=== PATIENT | male | born 2000 | race Caucasian/White ===

== ENCOUNTER 2022-04-09 21:37 | Emergency (ER) | payer BC, SELFPAY ==
[2022-04-09 21:38] VITALS: BP 175/117; PULSE 84; RESP 18; TEMP 35.9; O2SAT 97; BMI 25.1
[2022-04-09 21:45] VITALS: PULSE 61; RESP 18; O2SAT 100
--- NOTE | 2022-04-09 22:35 | EKG12_ITS ---
Test Reason : PALPS Blood Pressure : / mmHG Vent. Rate : 063 BPM Atrial Rate : 068 BPM P-R Int : 116 ms QRS Dur : 090 ms QT Int : 362 ms P-R-T Axes : 036 036 062 degrees QTc Int : 370 ms Normal sinus rhythm Normal ECG Confirmed by IRENA MARY, JEANNINE ([id number]), news videotape editor JUAN SOLORZANO ([id number]) on 04/10/2022 8:41:18 AM Referred By: CAIO Confirmed By:JEANNINE OSBORN MD
--- NOTE | 2022-04-09 22:35 | EX.ED.DYSGE1 ---
HPI History of Present Illness Chief Complaint: Palpitations Informant: patient Narrative Narrative: No recurrent palpitations this evening while resting. Has apple watch states heart rate in the 140s with lightheaded symptoms. Lasts about 20 seconds. had similar episode. Heart rate went up to 120s at that time had some chills. COVID test 2 days ago that was negative. No symptoms since then of chills. Follow he has been registered he noted his heart rate went up to 108 with palpitations. Thinks grandmother had atrial fibrillation history. No past medical history. He drinks caffeine 4 days a week however none recently. Denies recreational drug use. Denies energy drinks. No history of similar prior to . Denies recent vomiting or diarrhea. Prior similar symptoms: No PFSH PFSH Medical History no medical history Home Medications No Known/Unobtainable [No Known Home Medications] 05/21/16 [History Last Taken Unknown] Allergy/AdvReac Type Severity Reaction Status Date / Time No Known Allergies Allergy Verified 04/09/22 21:38 Surgical History no surgical history Social History Smoking Status: Never smoker ROS ROS ED Constitutional Constitutional ED: Denies chills, fever(s) or sweats Eyes Eyes: Denies change in vision ENT ENT ED: Denies dysphagia or sore throat Cardiovascular Cardiovascular: Reports palpitations and racing heartbeat; Denies chest pain or leg edema Respiratory/Chest Respiratory/Chest: Denies cough, dyspnea or dyspnea on exertion Gastrointestinal Gastrointestinal: Denies abdominal pain, diarrhea, nausea or vomiting Genitourinary Genitourinary ED: Denies dysuria, hematuria or urinary frequency Musculoskeletal Musculoskeletal: Denies back pain, extremity pain or neck pain Integumentary Denies rash or wounds Neurologic Neurologic: Denies headache(s), paresthesias or weakness EXAM Physical Exam Const Vital Signs: 04/09/22 21:38 04/09/22 21:45 04/09/22 21:45 Temperature 96.6 F L Temperature Source Temporal Pulse Rate 84 61 Respiratory Rate 18 18 Respiratory Effort Normal Blood Pressure 175/117 H Blood Pressure Mean 136 Pulse Ox 97 100 Oxygen Delivery Method Room Air Room Air 04/10/22 00:00 Temperature Temperature Source Pulse Rate 65 Respiratory Rate 15 Respiratory Effort Blood Pressure Blood Pressure Mean Pulse Ox 99 Oxygen Delivery Method Positive well nourished and well developed General Appearance ED: well developed and NAD HEENT Reports moist mucous membranes normocephalic and atraumatic Eyes PERRL, EOMs intact bilaterally and conjunctivae normal General Eye ED: Yes normal appearance of both eyes Neck no lymphadenopathy and supple General: Negative for tenderness Chest Wall Chest: Negative for tenderness Resp normal respiratory effort and normal air movement Effort and Inspection: symmetric chest movement; Negative for respiratory distress Cardio regular rate, regular rhythm and no murmurs Peripheral Pulses: pulses 2+ throughout GI normal to inspection, nondistended, normoactive bowel sounds and non-tender Palpation: Negative for guarding or rebound tenderness present Back/Spine no CVA tenderness and no thoracic nor lumbar tenderness Extremity normal to inspection General Extremety ED: Negative for edema or tenderness General Extremity: Negative for edema Neuro oriented x3 and no sensory deficits noted Sensorium / Orientation: awake and alert Skin no rashes or lesions noted and no wounds MDM MDM MDM Narrative Medical decision making narrative: Presents with recurrent palpitations. EKG normal labs normal. Discussed decreasing caffeine intake. Monitoring symptoms. He is ordered for 40-hour Holter monitor to return tomorrow as an outpatient to obtain for further evaluation. Return precautions discussed. All questions were answered. Lab Data Attestation: I reviewed the patient's lab results. Labs: Laboratory Results - last 24 hr 04/09/22 04/09/22 22:46 22:46 WBC 6.2 RBC 5.45 Hgb 17.0 H Hct 47.5 MCV 87.2 MCH 31.2 MCHC 35.8 RDW Std Deviation 37.3 RDW Coeff of Kirsten 11.9 Plt Count 193 MPV 9.8 Immature Gran % (Auto) 0.300 Neut % (Auto) 62.9 Lymph % (Auto) 25.0 Frontier % (Auto) 8.7 Eos % (Auto) 2.6 Baso % (Auto) 0.5 Absolute Neuts (auto) 3.9 Absolute Lymphs (auto) 1.55 Nucleated RBC % 0 Sodium 139 Potassium 3.7 Chloride 107 Carbon Dioxide 25.0 Anion Gap 7 BUN 27 H Creatinine 0.87 Estim Creat Clear Calc 138.68 Est GFR (MDRD) Af Amer 141 Est GFR (MDRD) Non-Af 117 BUN/Creatinine Ratio 30.9 H Glucose 108 H Calcium 9.2 TSH 1.54 EKG Initial EKG: Attestation: I personally reviewed and interpreted this EKG as follows: Comments: Sinus rate of 63, no ST or T wave changes QTC 370. Discharge Plan Triage Chief Complaint: Palpitations Other Complaint: Shortness of Breath ED Provider: Mickey Coleman Dx/Rx/DC Orders Clinical Impression: Palpitation Instructions: ED Palpitations Prescriptions: No Action No Known Home Medications Primary Care Provider: Bairon Major Referrals: Bairon Major MD [Primary Care Provider] - 1 Week Activity Restrictions/Additional Instructions: EKG and labs normal. Flu negative. Return for Holter monitor placement tomorrow as an outpatient. Return if any worsening symptoms. Disposition Disposition: Home, Self Care Discharge Date/Time: 04/10/22 00:02
[2022-04-09 22:52] LABS: Absolute Lymphocyte Count 1.55 X10^3/uL (0.83-4.51); Absolute Neutrophil Count 3.9 X10^3/uL (2.0-7.7); Basophil# 0.03 X10^3/uL; Basophil% 0.5 % (0-1); Eosinophil# 0.16 X10^3/uL; Eosinophils% 2.6 % (0-5); Hematocrit 47.5 % (40-54); Lymphocyte # 1.55 X10^3/ul (0.83-4.51); Mean Corp Hgb Conc 35.8 g/dL (32-36); Mean Corpuscular Hgb 31.2 pg (27.0-32.0); Mean Corpuscular Volume 87.2 fL (80-94); Mean Platelet Vol. 9.8 fl (6.2-12.0); Monocyte# 0.54 X10^3/uL; Monocyte% 8.7 % (0-10); NRBC Flagged by Analyzer 0 % (0-5); Neutrophil # 3.89 X10^3/uL (2.7-7.7); Neutrophil % 62.9 % (47-70); Platelet Count 193 K/mm3 (150-450); RBC Distribution Width CV 11.9 % (11.6-14.6); RBC Distribution Width SD 37.3 fl (35.1-43.9); Red Blood Count 5.45 M/mm3 (4.6-6.2); White Blood Count 6.2 K/mm3 (4.4-11.0)
[2022-04-09 23:19] LABS: Anion Gap 7 (5-15); BUN 27 mg/dL (7-18); BUN/Creat Ratio 30.9 RATIO (10-20); Calcium,Total 9.2 mg/dL (8.5-10.1); Chloride 107 mmol/L (98-107); Creatinine, Serum 0.87 mg/dL (0.70-1.30); EST Glomerular Filtration Rate 117 mL/min (>60); Est Glom Filt Rate - Afr Amer 141 mL/min (>60); Estimated Creatinine Clearance 138.68 ml/min; Glucose 108 mg/dL (74-106); Potassium 3.7 mmol/L (3.5-5.1); Sodium Level 139 mmol/L (136-145); Thyroid Stim Hormone (TSH) 1.54 uIU/mL (0.358-3.74)
[2022-04-10] VITALS: PULSE 65; RESP 15; O2SAT 99
== END 2022-04-10 00:02 | disposition home or self-care (01) ==
PROVIDERS: Emergency Provider Emergency Medicine; PCP Pediatrics; Visit Provider Emergency Medicine
DX: R00.2 Palpitations (principal)
CPT/HCPCS: 80048; 84443; 85025; 87804; 93005; 99284

== ENCOUNTER → 2022-04-10 | Outpatient (CLI) | payer BC, SELFPAY | END | disposition home or self-care (01) | LOC: CVS 09:30 | PROVIDERS: PCP Pediatrics; Referring Provider Emergency Medicine; Visit Provider Emergency Medicine | DX: R00.2 Palpitations (principal) | CPT/HCPCS: 93225; 93226 ==

== ENCOUNTER 2024-12-14 22:50 | Emergency (ER) | payer OTHER, SELFPAY ==
[2024-12-14 22:51] VITALS: BP 132/93; PULSE 61; RESP 18; TEMP 37; O2SAT 97; BMI 26.6
[2024-12-14 22:54] VITALS: BP 132/93; PULSE 61; RESP 18; TEMP 37; O2SAT 97
--- NOTE | 2024-12-14 23:14 | ED.VIS.LOWEX ---
HPI History of Present Illness Chief Complaint: Wound Check Informant: patient Narrative Narrative: 24-year-old healthy male playing sand volleyball 4 days ago along with some coworkers, a lot of them got blisters on the bottom of the feet from that and this patient did as well. Biggest one is on the bottom of his heel. He states it was sore to walk on so he used a sterile needle and after cleaning the skin drain the water out of it in [address]. Over the last day or so immediately started having some redness and started going a little bit proximally within the medial aspect of the foot, she is concerned about infection. He denies any fevers, chills, systemic symptoms. There has been no drainage recently even though he did poke a hole in it a couple days ago again. PFSH PFSH Medical History no medical history no medical history Home Medications ?Medication ?Instructions ?Recorded ?Last Taken ?Type cephalexin 500 mg capsule 500 mg PO Q6 #28 CAPSULES 12/14/24 Unknown Rx Allergy/AdvReac Type Severity Reaction Status Date / Time No Known Allergies Allergy Verified 12/14/24 22:51 Family History no significant family his Surgical History no surgical history Social History Smoking Status: Never smoker ROS ROS ED Constitutional Constitutional ED: Denies chills or fever(s) Musculoskeletal Musculoskeletal: Reports extremity pain; Denies neck pain Integumentary Reports rash and wounds; Denies Abrasions Neurologic Neurologic: Denies paresthesias or weakness EXAM Physical Exam Const Vital Signs: 12/14/24 22:51 12/14/24 22:54 Temperature 98.6 F 98.6 F Temperature Source Oral Oral Pulse Rate 61 61 Respiratory Rate 18 18 Blood Pressure 132/93 H 132/93 H Blood Pressure Mean 106 106 Pulse Ox 97 97 Oxygen Delivery Method Room Air Room Air Positive well nourished and well developed General Appearance ED: well developed and NAD HEENT normocephalic and atraumatic Neck full ROM and supple Resp normal respiratory effort Back/Spine normal ROM and normal to inspection Extremity Extremity Narrative: Large unroofed blister on the left heel, nontender except for 1 small little extension of it distally and medial, mildly tender there is some erythema there around it, and a slight amount of streaking up to the medial aspect of the foot/heel. With regards to the streaking it progresses maybe 3 cm and is nontender. There is no fluctuance or abscess or discharge from the blister, and the blister is not fluctuant or seemingly full of any fluid. Neuro oriented x3, no focal motor deficits and no sensory deficits noted Sensorium / Orientation: alert Psych mental status grossly normal and thought process normal Skin Skin Narrative: Wound on the left heel with a slight amount erythema streaking up to the medial aspect of the foot see above MDM MDM MDM Narrative Medical decision making narrative: I do not think there is anything to drain here right now. There is only a slight amount of erythema of the part of this, so I think reasonable to put him on cephalexin. I do not think we need to be concerned about anaerobes right now, since it was a closed blister when he was done with the causative volleyball game, and it probably became secondarily infected so strep and staph would be the main thing to cover here am not concerned about MRSA at this time given its appearance and lack of significant/severe tenderness. Discharge Plan Triage Chief Complaint: Wound Check ED Provider: Jose Alberto Iverson Dx/Rx/DC Orders Clinical Impression: Infected blister of left foot Instructions: ED Blister (Adult), ED Wound Check (Infection) Prescriptions: New cephalexin 500 mg capsule 500 mg PO Q6 Qty: 28 0RF Primary Care Provider: Care Physician,No Primary Referrals: Guy Townsend DPM [Med Staff - Active Staff] - 1 Week if not improving Print Language: Indonesian Disposition Disposition: Home, Self Care
[2024-12-14 23:32] VITALS: BP 132/93; PULSE 61; RESP 18; TEMP 37; O2SAT 97
--- OUTSIDE RECORDS SUMMARY | 2024-12-14 23:37 | XMS RPT_ITS | CCD ---
Author Organization [facility] Inform ion Partnership AUTOMATION CLERK [facility] Care Team Providers Care Jira Administrator Name Role Phone None, Physician Primary Care Provider [phone] DO Kyler Chun Emergency Provider [phone] Yoseph Scott MD Primary Care Provider Kyler Chun Attending Unavailable Isra Primary Care Unavailable Mickey Coleman Attending Unavailable Mickey Coleman Referring Unavailable Yoseph Scott Primary Care Unavailable Mickey Coleman Attending Unavailable Yoseph Scott Primary Care Unavailable YOSEPH SCOTT Attending Unavailable YOSEPH SCOTT Primary Care Unavailable Bart DPM, Edi Leon Attending Unavailab le Bart DPM, Edi Leon Attending Unavailab le Bart DPM, Edi Leon Attending Unavailab le Bart DPM, Edi Leon Attending Unavailab le Mukund DOAra Attending Unava ilable Bart DPM, Edi Leon Attending Unavailab le Bart DPM, Edi Leon Attending Unavailab le Bart DPM, Edi Leon Attending Unavailab le Bart DPM, Edi Leon Attending Unavailab le Bart DPM, Edi Leon Attending Unavailab le Bart DPM, Edi Leon Attending Unavailab le Bart DPM, Edi Leon Attending Unavailab le Bart DPM, Edi Leon Attending Unavailab le JESSICA YUMIKO SIMON Attending Unavailabl e Allergies Allergy Classification Reported Allergen(s) Allergy Type Date of Onset Reaction(s) Facility (1 source) No Known Medication Allergies; Translations: [No Known Medication Allergies] Propensity to adverse reactions to drug (disorder) [facility] Repository Medications Completed/Discontinued Medications Medication Drug Class(es) Dates Sig (Normalized) Sig (Original) amino ac/whey prot conc, isol (WHEY PROTEIN ORAL) (2 sources) amino ac/whey pr ot conc, isol (WHEY PROTEIN ORAL) Take by mouth. 3-5 times per week after workouts 0 Active Comment on above: Take by mouth. 3-5 t imes per week after workouts Multivitamin capsule (2 sources) take 1 capsule by mouth once daily Multivitamin capsule Take 1 capsule by mouth once daily. With fish oil 0 Active Comment on above: Take 1 capsule by mo uth once daily. With fish oil Problems Problem Classification Problem Date Documented Da te Episodic/Chronic Cardiac dysrhythmias (4 sources) Palpitations; Translations: [Palpitations] Onset: 05-10-2022 Episodic Disorders of teeth and jaw (1 source) Unspecified cyst of jaw; Translations: [Unspecified cyst of jaw] Onset: 11-11-2024 Episodic Immunizations and screening for infectious disease (1 source) Patient encounter status; Translations: [Encounter for immunization] Episodic Residual codes; unclassified (3 sources) FH: Congenital heart disease; Translations: [Family history of other congenital malformations, deformations and chromosomal abnormalities] Onset: 05-30-2019 05-30-2019 Episodic Results Test Name Value Interpretation Reference Range Facility Podiatry Office/Clinic Noteo n 01-06-2024 Podiatry Office/Clinic Note Chief Complaint f/u right medial mal fx History of Present Illness Patient is a pleasant 23-year-old male who presents for follow-up of nondisplaced right medial malleolus fracture. He is being treated nonoperatively. He has been weightbearing as tolerated normal shoe gear, he has returned to full activity. He is not having any pain. He is not having any issues. Denies calf pain. No complaints. Here for updated x-rays of the right ankle. Initially sustained injury on June 18, 2023. He is about 6 months status post injury. Has been using Tubigrip's for swelling. Relates the swelling has almost completely resolved Has virtually no pain he relates. Review of Systems Constitutional Head Nose Mouth Throat Cardio/Respiratory Hematologic Chills: No Headache: No Shortness of Breath: No History of DVT: No Fever: No Sore Throat: No Chest Pain: No History of Claudication: No Ear Pain: No Palpitation: No History of Aneurysm: No History of Gangrene: No Genitourinary Musculoskeletal Psychiatric Vascular Burning: No Muscle Weakness: No Anxiety: No Blood Disorder: No Pain: No Joint Pain: No Depression: No Numbness: No Gastrointestinal Dermatology Rheumatologic Problems: No Rash: No History of Rheumatic Arthritis: No Pain: No Pruritus: No History of Gout: No History of Lupus: No Physical Exam Vitals & Measurements HR: 73 (Peripheral) BP: 150/79 Orthopedic: Bony foot structure appears grossly normal. Patient able to wiggle toes. 5 out of 5 muscle strength all inverters everters dorsiflexors and plantar flexors. No pain on right ankle joint range of motion. No pain to palpation right medial malleolus. Patient able to perform single-leg hop test for greater than 30 seconds on the right. Compartments are soft and compressible no pain out of portion noted bilateral. No pain to palpation bilateral calves. Vascular: Pulses palpable 2/4 Dorsalis Pedis and Posterior Tibial Arteries Bilateral. Capillary fill time brisk, approximately 3 seconds bilateral toes when leg elevated. Nonpitting edema noted right ankle. Skin temp warm to warm proximal to distal bilateral. Neurological: Gross and epicritic sensation intact bilateral. Protective sensation intact as measured with Interv[place] Lizeth monofilament. Gross motor intact bilateral. Negative tinels/valliex upon neural light percussion. Dermatologic: Splint clean dry and intact right lower extremity. Negative for overt rashes or irregular pigmented lesions. Skin turgor within normal limits Additional Vitals No qualifying data available. Assessment/Plan 1. Closed nondisp fracture of right medial malleolus with routine healing Discussed risk of nonunion/malunion/possi ble need for surgical intervention. Patient relates understanding. -Evaluation and Management extensively on treatment regimen with time spent with patient dedicated to discussion of pathogenesis and treatment options for patient's problems including bracing, protection, and avoiding the need for operative intervention as well as the possibility of surgical intervention such as Open reduction and internal fixation. 3 views right ankle obtained, reviewed, and interpreted. No change in alignment of fracture. Continued osseous trabeculation noted/bone callus formation. Discussed with patient He he may continue weightbearing as tolerated normal shoe gear. Encouraged use of ASO ankle brace with strenuous activity. All questions and concerns answered. Patient and mother are amenable to plan. *Return to clinic 6 months for new weightbearing radiographs right ankle. Fracture check next visit will be 12-month post fracture check Medical Decision Making Given all the above, there is low risk of M/M associated with today's encounter and treatment plan. Chronic conditions NOT treated during this visit that affected my overall medical decision making: [] Treatment plans discussed but not opted for at this time: [] Prescribed medication that requires intensive monitoring for toxicity: [] I have reviewed the patient?s medication list for medication interactions/contraindi cations and/or for upcoming procedures: [yes Time Spent with the Patient I have personally spent [31] minutes on this date, directly related to today's patient visit, including pre and post visit work, for this date of service. Time listed does not include time spent on separately billable services. Problem List/Past Medical History Ongoing No qualifying data Historical No qualifying data Medications DME, See Instructions Allergies No Known Medication Allergies Social History Alcohol Never Substance Abuse Denies All Tobacco Never (less than 100 in lifetime) Use:. Diagnostic Results (01/06/2024 15:11 EDT XR Ankle 3 Views Right) * Final Report * Reason For Exam right ankle wb 3v Report 3 views right ankle demonstrate: Osseous trabeculation noted almost entirely acros (more content not included)... Normal [facility] XR Ankle 3 Views Righton XR Ankle 3 Views Right 3 views right ankle demonstrate: Osseous trabeculation noted almost entirely across the prior radiolucency at the medial malleolus noted with no change in alignment of the known fracture. There is continued osseous trabeculation noted across the fracture site at the central aspect and lateral aspect. No other acute fracture dislocations noted. No increase in medial clear space. No increase in tib-fib clear space. No radiolucencies of the talar dome noted. Ankle mortise is well aligned and maintained otherwise. No foreign bodies noted. No increase in soft tissue volume, density, or edema noted. No soft tissue calcifications noted. No subchondral sclerosis noted. No change in alignment of fracture with noted continued osseous trabeculation compared to prior study on August 29, 2023 Final Signed by: Edi Arriaga DPM Signed (Electronic Signature): 01/06/2024 3:32 pm Transcribed DT/TM: 01/06/2024 3:32 (If Report Is Signed, Electronically Signed in Other Vendor System) Normal [facility] Podiatry Office/Clinic Noteo n 08-29-2023 Podiatry Office/Clinic Note Chief Complaint Follow-up right medial malleolus fracture History of Present Illness Patient is a pleasant 22-year-old male who presents for follow-up of nondisplaced right medial malleolus fracture. He is being treated nonoperatively. He has been weightbearing as tolerated normal shoe gear, he is starting to return to activity, he has been golfing. He is not having any pain. He is not having any issues. Denies calf pain. No complaints. Here for updated x-rays of the right ankle. Initially sustained injury on June 18, 2023. He is about 12 weeks status post injury. Has been using Tubigrip's for swelling. Relates the swelling continues to improve. Has virtually no pain he relates. Review of Systems Constitutional Head Nose Mouth Throat Cardio/Respiratory Hematologic Chills: No Headache: No Shortness of Breath: No History of DVT: No Fever: No Sore Throat: No Chest Pain: No History of Claudication: No Ear Pain: No Palpitation: No History of Aneurysm: No History of Gangrene: No Genitourinary Musculoskeletal Psychiatric Vascular Burning: No Muscle Weakness: No Anxiety: No Blood Disorder: No Pain: No Joint Pain: No Depression: No Numbness: No Gastrointestinal Dermatology Rheumatologic Problems: No Rash: No History of Rheumatic Arthritis: No Pain: No Pruritus: No History of Gout: No History of Lupus: No Physical Exam Vitals & Measurements HR: 86 (Peripheral) BP: 147/81 Orthopedic: Bony foot structure appears grossly normal. Patient able to wiggle toes. 5 out of 5 muscle strength all inverters everters dorsiflexors and plantar flexors. No pain on right ankle joint range of motion. No pain to palpation right medial malleolus. Patient able to perform single-leg hop test for greater than 30 seconds on the right. Compartments are soft and compressible no pain out of portion noted bilateral. No pain to palpation bilateral calves. Vascular: Pulses palpable 2/4 Dorsalis Pedis and Posterior Tibial Arteries Bilateral. Capillary fill time brisk, approximately 3 seconds bilateral toes when leg elevated. Nonpitting edema noted right ankle. Skin temp warm to warm proximal to distal bilateral. Neurological: Gross and epicritic sensation intact bilateral. Protective sensation intact as measured with Intervale Lizeth monofilament. Gross motor intact bilateral. Negative tinels/valliex upon neural light percussion. Dermatologic: Splint clean dry and intact right lower extremity. Negative for overt rashes or irregular pigmented lesions. Skin turgor within normal limits Additional Vitals No qualifying data available. Assessment/Plan 1. Closed nondisp fracture of right medial malleolus with routine healing Discussed risk of nonunion/malunion/possi ble need for surgical intervention. Patient relates understanding. -Evaluation and Management extensively on treatment regimen with time spent with patient dedicated to discussion of pathogenesis and treatment options for patient's problems including bracing, protection, and avoiding the need for operative intervention as well as the possibility of surgical intervention such as Open reduction and internal fixation. 3 views right ankle obtained, reviewed, and interpreted. No change in alignment of fracture. Continued osseous trabeculation noted/bone callus formation. Discussed with patient He he may continue weightbearing as tolerated normal shoe gear. Encouraged use of ASO ankle brace with strenuous activity. All questions and concerns answered. Patient and mother are amenable to plan. *Return to clinic 3 months for new weightbearing radiographs right ankle. Fracture check next visit will be 6-month post fracture check Medical Decision Making Given all the above, there is low risk of M/M associated with today's encounter and treatment plan. Chronic conditions NOT treated during this visit that affected my overall medical decision making: [] Treatment plans discussed but not opted for at this time: [] Prescribed medication that requires intensive monitoring for toxicity: [] I have reviewed the patient?s medication list for medication interactions/contraindi cations and/or for upcoming procedures: [yes Time Spent with the Patient I have personally spent [30] minutes on this date, directly related to today's patient visit, including pre and post visit work, for this date of service. Time listed does not include time spent on separately billable services. Problem List/Past Medical History Ongoing No qualifying data Historical No qualifying data Medications DME, See Instructions Allergies No Known Medication Allergies Social History Alcohol Never Substance Abuse Denies All Tobacco Never (less than 100 in lifetime) Use:. Diagnostic Results XR Ankle 3 Views Right 08/29/23 14:35:04 3 views right ankle demonstrate: Redemonstration of the radiolucency at the medial malleolus noted with no change in a (more content not included)... Normal [facility] XR Ankle 3 Views Righton XR Ankle 3 Views Right 3 views right ankle demonstrate: Redemonstration of the radiolucency at the medial malleolus noted with no change in alignment of the known fracture. There is osseous trabeculation noted across the fracture site at the central aspect and lateral aspect. No other acute fracture dislocations noted. No increase in medial clear space. No increase in tib-fib clear space. No radiolucencies of the talar dome noted. Ankle mortise is well aligned and maintained otherwise. No foreign bodies noted. No increase in soft tissue volume, density, or edema noted. No soft tissue calcifications noted. No change in alignment of fracture with noted continued osseous trabeculation compared to prior study on August 02, 2023 Final Signed by: Edi Arriaga DPM Signed (Electronic Signature): 08/29/2023 4:38 pm Transcribed DT/TM: 08/29/2023 4:38 (If Report Is Signed, Electronically Signed in Other Vendor System) Normal [facility] ED Clinical Summaryon 2023 ED Clinical Summary (Inserted Image. Jenelle ble to display) [place] [id number] ED Clinical Summary Person Information Name: Denia Pederson [facility] Age: 22 Years : 2000 Sex: Male PCP: Marital Status: Single Phone: Race: White Ethnicity: Not or Language: [place] Verdean Visit Reason: Hand pain-swelling; hand injury Acuity: 4 Enc Type: Emergency Med Service: Emergency Medicine Arrival: 08/12/2023 21:37:00 Discharge: 08/12/2023 22:43:00 LOS: 000 01:06 Checkin: 08/12/2023 21:37:00 Checkout: 08/12/2023 22:43:00 Dispo Type: Home or Self Care Address: [facility] [address] [phone] Provider Notes: History of Present Illness Patient presents to the ED with complaints of pain along the L dorsal hand at the lateral aspect.? He notes one hour SCRIPT COORDINATOR he was playing golf and notes the club slid in his hand and struck it.? He states the club was not swung into his hand.? He denies having weakness or numbness.? He took Naproxen SCRIPT COORDINATOR. Review of Systems GENERAL: Negative for fever RESPIRATORY: Negative for cough GI: Negative for vomiting and diarrhea SKIN: Negative for rash NEURO: Negative for acute changes Physical Exam CONSTITUTIONAL: Patient is awake and alert HEAD: Normocephalic, atraumatic HEENT: Moist mucus membranes, oropharynx clear EYES: Pupils are equally round and reactive to light, lids and lashes normal, clear conjunctiva, non-icteric sclera.? No drainage NECK: Trachea midline, external neck normal, supple, no nuchal rigidity or meningismus PULMONARY: Clear to auscultation bilaterally with equal sounds.? Normal rate and effort CARDIOVASCULAR: Regular rate and?rhythm. GASTROINTESTINAL: Soft, non-tender, normal bowel sounds, no rebound or guarding BACK: No flank tenderness SKIN: Warm and dry.? No petechiae MUSCULOSKELETAL: Extremities without acute deformity.? Mild swelling and tenderness along the lateral aspect of the L dorsal hand.? The hand is soft.? Normal ROM.? No tenderness along the wrist of snuff box.? No other LUE tenderness.? No midline C/T/L spine tenderness.? Normal distal pulses and cap refill.? NEUROLOGIC:?No gross motor or sensory deficits.? Normal tone.? Normal coordination.? PSYCHIATRIC: Normal mood and affect Diagnosis: 1:Contusion of left hand Problems No Problems Documented Smoking Status: Functional Status: Sensory Deficits: History of Falls: Mobility Assistance Prior to Admission: ADLs: Current Level of Assistance for Self-Care/Mobility: Cognitive Status: Allergies No Known Medication Allergies Laboratory or Other Results This Visit (last charted value for your 08/12/2023 visit) Diagnostic Radiology 08/12/2023 10:02 PM XR Hand 3 Views Left: XR Hand 3 Views Left Measurements: Height: Weight: Blood Pressure: /88 mmHg BMI: Procedures No Procedures Documented Immunizations No Immunizations Documented This Visit Final Med List: Medications that have not changed Other Medications DME Refills: 0. Last Dose: __ Other Medications DME Refills: 0. Care Team Members: Attending Physician: Ara Duval DO Consulting Physician: Referring Physician: Provider Role Assigned Unassigned Selam Lanza ED Nurse 08/12/2023 21:45:19 Ara Duval DO ED Provider 08/12/2023 21:45:47 Follow up: With: Address: When: See your primary care provider in 2-3 days. Type Location Start Finish State XR Ankle RS Rehab Rad 08/29/2023 13:45:00 08/29/2023 14:00:00 Confirmed SP Follow Up Visit 15 Ortho/Sport Med 08/29/2023 14:00:00 08/29/2023 14:15:00 Confirmed Patient Education Information: Hand Contusion [facility] Poison Help line: . [facility] Hotline: [place] Tobacco Quit Line: [place], [place]) [address]: [phone] [place], [place]) [address]: [phone] [facility] [address], [place]: [phone] Normal [facility] ED Note-Physicianon 08-12-19 ED Note-Physician Chief Complaint L hand pain History of Present Illness Patient presents to the ED with complaints of pain along the L dorsal hand at the lateral aspect. He notes one hour SCRIPT COORDINATOR he was playing golf and notes the club slid in his hand and struck it. He states the club was not swung into his hand. He denies having weakness or numbness. He took Naproxen SCRIPT COORDINATOR. Review of Systems GENERAL: Negative for fever RESPIRATORY: Negative for cough GI: Negative for vomiting and diarrhea SKIN: Negative for rash NEURO: Negative for acute changes Physical Exam CONSTITUTIONAL: Patient is awake and alert HEAD: Normocephalic, atraumatic HEENT: Moist mucus membranes, oropharynx clear EYES: Pupils are equally round and reactive to light, lids and lashes normal, clear conjunctiva, non-icteric sclera. No drainage NECK: Trachea midline, external neck normal, supple, no nuchal rigidity or meningismus PULMONARY: Clear to auscultation bilaterally with equal sounds. Normal rate and effort CARDIOVASCULAR: Regular rate and rhythm. GASTROINTESTINAL: Soft, non-tender, normal bowel sounds, no rebound or guarding BACK: No flank tenderness SKIN: Warm and dry. No petechiae MUSCULOSKELETAL: Extremities without acute deformity. Mild swelling and tenderness along the lateral aspect of the L dorsal hand. The hand is soft. Normal ROM. No tenderness along the wrist of snuff box. No other LUE tenderness. No midline C/T/L spine tenderness. Normal distal pulses and cap refill. NEUROLOGIC: No gross motor or sensory deficits. Normal tone. Normal coordination. PSYCHIATRIC: Normal mood and affect Vitals & Measurements T: 37.1 ?C (Oral) HR: 84 (Peripheral) HR: 84 (Monitored) RR: 18 BP: 144/88 SpO2: 96% Additional Vitals No qualifying data available. Procedure No qualifying data available. ASA Documentation Medical Decision Making Appears well, NAD. ED return precautions reviewed and follow up plan discussed. Assessment/Plan 1. Contusion of left hand Orders: [id number] - ED Professional Level 4 Discharge Patient Refresh vitals and sections below: Problem List/Past Medical History Ongoing No qualifying data Historical No qualifying data Medications Inpatient No active inpatient medications Home DME, See Instructions Allergies No Known Medication Allergies Social History Alcohol Never Substance Abuse Denies All Tobacco Never (less than 100 in lifetime) Use:. Diagnostic Results Electronically signed by ___ Ara Duval DO 08/12/23 22:38 EDT Normal [facility] XR Hand 3 Views Lefton 08-11 XR Hand 3 Views Left Exam: Radiographs: XR Hand 3 Views Left Reason for exam: Injury, hand Comparison: None IMPRESSION: Unremarkable left hand radiographs. Final Dictated by: Juventino Lynn MD Dictated DT/TM: 08/12/2023 10:20 pm Signed by: Juventino Lynn MD Signed (Electronic Signature): 08/12/2023 10:21 pm (If Report Is Signed, Electronically Signed in Other Vendor System) Normal [facility] Podiatry Office/Clinic Noteo n 08-02-2023 Podiatry Office/Clinic Note Chief Complaint Follow-up right medial malleolus fracture. History of Present Illness Patient is a pleasant 22-year-old male who presents for follow-up of nondisplaced right medial malleolus fracture. He is being treated nonoperatively. He has maintained nonweightbearing status in [facility]. He presents with his mother today. States that his pain is well-controlled. He is not having any issues. Denies calf pain. No complaints. Here for updated x-rays of the right ankle. Initially sustained injury on June 18, 2023. He is about 6 weeks status post injury. Has been using Tubigrip's for swelling. Relates the swelling continues to improve. Has virtually no pain he relates. Review of Systems Constitutional Head Nose Mouth Throat Cardio/Respiratory Hematologic Chills: No Headache: No Shortness of Breath: No History of DVT: No Fever: No Sore Throat: No Chest Pain: No History of Claudication: No Ear Pain: No Palpitation: No History of Aneurysm: No History of Gangrene: No Genitourinary Musculoskeletal Psychiatric Vascular Burning: No Muscle Weakness: No Anxiety: No Blood Disorder: No Pain: No Joint Pain: No Depression: No Numbness: No Gastrointestinal Dermatology Rheumatologic Problems: No Rash: No History of Rheumatic Arthritis: No Pain: No Pruritus: No History of Gout: No History of Lupus: No Physical Exam Vitals & Measurements HR: 81 (Peripheral) BP: 144/82 Orthopedic: Bony foot structure appears grossly normal. Patient able to wiggle toes. 5 out of 5 muscle strength all inverters everters dorsiflexors and plantar flexors. No pain on right ankle joint range of motion. No pain to palpation right medial malleolus. Patient able to perform single-leg hop test for greater than 30 seconds on the right. Compartments are soft and compressible no pain out of portion noted bilateral. No pain to palpation bilateral calves. Vascular: Pulses palpable 2/4 Dorsalis Pedis and Posterior Tibial Arteries Bilateral. Capillary fill time brisk, approximately 3 seconds bilateral toes when leg elevated. Nonpitting edema noted right ankle. Skin temp warm to warm proximal to distal bilateral. Neurological: Gross and epicritic sensation intact bilateral. Protective sensation intact as measured with Intervale Lizeth monofilament. Gross motor intact bilateral. Negative tinels/valliex upon neural light percussion. Dermatologic: Splint clean dry and intact right lower extremity. Negative for overt rashes or irregular pigmented lesions. Skin turgor within normal limits [1] Additional Vitals No qualifying data available. Assessment/Plan 1. Closed nondisp fracture of right medial malleolus with routine healing Discussed risk of nonunion/malunion/possi ble need for surgical intervention. Patient relates understanding. -Evaluation and Management extensively on treatment regimen with time spent with patient dedicated to discussion of pathogenesis and treatment options for patient's problems including bracing, protection, and avoiding the need for operative intervention as well as the possibility of surgical intervention such as Open reduction and internal fixation. 3 views right ankle obtained, reviewed, and interpreted. No change in alignment of fracture. Osseous trabeculation noted/bone callus formation. He may transition to weightbearing as tolerated. Use cam boot first. ASO ankle brace dispensed. As his pain and swelling tolerates he may transition to the ASO ankle brace. All questions and concerns answered. Patient and mother are amenable to plan. *Return to clinic 4 weeks for new weightbearing radiographs right ankle. Medical Decision Making Given all the above, there is low risk of M/M associated with today's encounter and treatment plan. Chronic conditions NOT treated during this visit that affected my overall medical decision making: [] Treatment plans discussed but not opted for at this time: [] Prescribed medication that requires intensive monitoring for toxicity: [] I have reviewed the patient?s medication list for medication interactions/contraindi cations and/or for upcoming procedures: [yes Time Spent with the Patient I have personally spent [30] minutes on this date, directly related to today's patient visit, including pre and post visit work, for this date of service. Time listed does not include time spent on separately billable services. Problem List/Past Medical History Ongoing No qualifying data Historical No qualifying data Medications DME, See Instructions Allergies No Known Medication Allergies Social History Alcohol Never Substance Abuse Denies All Tobacco Never (less than 100 in lifetime) Use:. Diagnostic Results (08/02/2023 11:44 EDT XR Ankle 3 Views Right) * Final Report * Reason For Exam right medial malleolus fx Report 3 views right ankle demonstrate: Overlying splint material noted. Redemonstration of the radiol (more content not included)... Normal [facility] XR Ankle 3 Views Righton XR Ankle 3 Views Right 3 views right ankle demonstrate: Overlying splint material noted. Redemonstration of the radiolucency at the medial malleolus noted with no change in alignment of the known fracture. There is osseous trabeculation noted across the fracture site at the central aspect. No other acute fracture dislocations noted. No increase in medial clear space. No increase in tib-fib clear space. No radiolucencies of the talar dome noted. Ankle mortise is well aligned and maintained otherwise. No foreign bodies noted. No increase in soft tissue volume, density, or edema noted. No soft tissue calcifications noted. No change in alignment of fracture with noted osseous trabeculation compared to prior study on July 18, 2023. Final Signed by: Edi Arriaga DPM Signed (Electronic Signature): 08/02/2023 11:49 am Transcribed DT/TM: 08/02/2023 11:49 (If Report Is Signed, Electronically Signed in Other Vendor System) Normal [facility] Podiatry Office/Clinic Noteo n 07-18-2023 Podiatry Office/Clinic Note Chief Complaint f/u right medial malleolus fx History of Present Illness Patient is a pleasant 22-year-old male who presents for follow-up of nondisplaced right medial malleolus fracture. He is being treated nonoperatively. He has maintained nonweightbearing status in [facility] boot. He presents with his mother today. States that his pain is well-controlled. He is not having any issues. Denies calf pain. No complaints. Here for updated x-rays of the right ankle. Initially sustained injury on June 18, 2023. He is about 1 month status post injury. Has been using Tubigrip's for swelling. Relates the swelling continues to improve. Review of Systems Constitutional Head Nose Mouth Throat Cardio/Respiratory Hematologic Chills: No Headache: No Shortness of Breath: No History of DVT: No Fever: No Sore Throat: No Chest Pain: No History of Claudication: No Ear Pain: No Palpitation: No History of Aneurysm: No History of Gangrene: No Genitourinary Musculoskeletal Psychiatric Vascular Burning: No Muscle Weakness: No Anxiety: No Blood Disorder: No Pain: No Joint Pain: No Depression: No Numbness: No Gastrointestinal Dermatology Rheumatologic Problems: No Rash: No History of Rheumatic Arthritis: No Pain: No Pruritus: No History of Gout: No History of Lupus: No Physical Exam Vitals & Measurements HR: 84 (Peripheral) BP: 134/82 Orthopedic: Bony foot structure appears grossly normal. Patient able to wiggle toes. Strength and range of motion testing deferred due to presence of medial malleolus fracture. Compartments are soft and compressible no pain out of portion noted bilateral. No pain to palpation bilateral calves. Vascular: Pulses palpable 2/4 Dorsalis Pedis and Posterior Tibial Arteries Bilateral. Capillary fill time brisk, approximately 3 seconds bilateral toes when leg elevated. Nonpitting edema noted right ankle. Skin temp warm to warm proximal to distal bilateral. Neurological: Gross and epicritic sensation intact bilateral. Protective sensation intact as measured with Intervale Lizeth monofilament. Gross motor intact bilateral. Negative tinels/valliex upon neural light percussion. Dermatologic: Splint clean dry and intact right lower extremity. Negative for overt rashes or irregular pigmented lesions. Skin turgor within normal limits Additional Vitals No qualifying data available. Assessment/Plan 1. Closed nondisp fracture of right medial malleolus with routine healing Discussed risk of nonunion/malunion/possi ble need for surgical intervention. Patient relates understanding. -Evaluation and Management extensively on treatment regimen with time spent with patient dedicated to discussion of pathogenesis and treatment options for patient's problems including bracing, protection, and avoiding the need for operative intervention as well as the possibility of surgical intervention such as Open reduction and internal fixation. 3 views right ankle obtained, reviewed, and interpreted. No change in alignment of fracture. Continue nonweightbearing. Nonweightbearing right lower extremity. Patient return to clinic in 2 weeks for reevaluation and repeat radiographs right ankle. Continue cam boot. Continue nonweightbearing range of motion exercises Continue knee scooter and crutches All questions and concerns answered. Patient and mother are amenable to plan. *Return to clinic 2 weeks for new nonweightbearing radiographs right ankle. Medical Decision Making Given all the above, there is low risk of M/M associated with today's encounter and treatment plan. Chronic conditions NOT treated during this visit that affected my overall medical decision making: [] Treatment plans discussed but not opted for at this time: [] Prescribed medication that requires intensive monitoring for toxicity: [] I have reviewed the patient?s medication list for medication interactions/contraindi cations and/or for upcoming procedures: [yes Time Spent with the Patient I have personally spent [30] minutes on this date, directly related to today's patient visit, including pre and post visit work, for this date of service. Time listed does not include time spent on separately billable services. Problem List/Past Medical History Ongoing No qualifying data Historical No qualifying data Medications DME, See Instructions Allergies No Known Medication Allergies Social History Alcohol Never Substance Abuse Denies All Tobacco Never (less than 100 in lifetime) Use:. Diagnostic Results XR Ankle 3 Views Right 08/02/23 11:44:33 3 views right ankle demonstrate: Overlying splint material noted. Redemonstration of the radiolucency at the medial malleolus noted with no change in alignment of the known fracture. There is osseous trabeculation noted across the fracture site at the central aspect. No other acute fracture dislocations noted. No increase in medial clear space. No (more content not included)... Normal [facility] XR Ankle 3 Views Righton XR Ankle 3 Views Right 3 views right ankle demonstrate: Overlying splint material noted. Redemonstration of the radiolucency at the medial malleolus noted with no change in alignment of the known fracture. No other acute fracture dislocations noted. No increase in medial clear space. No increase in tib-fib clear space. No radiolucencies of the talar dome noted. Ankle mortise is well aligned and maintained otherwise. No foreign bodies noted. No increase in soft tissue volume, density, or edema noted. No soft tissue calcifications noted. No change in alignment or appearance for fracture compared to prior study on July 04, 2023. Final Signed by: Edi Arriaga DPM Signed (Electronic Signature): 07/18/2023 3:50 pm Transcribed DT/TM: 07/18/2023 3:50 (If Report Is Signed, Electronically Signed in Other Vendor System) Normal [facility] Podiatry Office/Clinic Noteo n 07-04-2023 Podiatry Office/Clinic Note Chief Complaint follow up right medial malleolous fx History of Present Illness Patient is a pleasant 22-year-old male who presents for follow-up of nondisplaced right medial malleolus fracture. He is being treated nonoperatively. He has maintained nonweightbearing status in splint. He presents with his mother today. States that his pain is well-controlled. He is not having any issues. Denies calf pain. No complaints. Here for updated x-rays of the right ankle. Initially sustained injury on June 18, 2023. Review of Systems Constitutional Head Nose Mouth Throat Cardio/Respiratory Hematologic Chills: No Headache: No Shortness of Breath: No History of DVT: No Fever: No Sore Throat: No Chest Pain: No History of Claudication: No Ear Pain: No Palpitation: No History of Aneurysm: No History of Gangrene: No Genitourinary Musculoskeletal Psychiatric Vascular Burning: No Muscle Weakness: No Anxiety: No Blood Disorder: No Pain: No Joint Pain: No Depression: No Numbness: No Gastrointestinal Dermatology Rheumatologic Problems: No Rash: No History of Rheumatic Arthritis: No Pain: No Pruritus: No History of Gout: No History of Lupus: No Physical Exam Vitals & Measurements HR: 80 (Peripheral) BP: 131/83 Orthopedic: Bony foot structure appears grossly normal. Patient able to wiggle toes. Strength and range of motion testing deferred due to presence of medial malleolus fracture. Compartments are soft and compressible no pain out of portion noted bilateral. No pain to palpation bilateral calves. Vascular: Pulses palpable 2/4 Dorsalis Pedis and Posterior Tibial Arteries Bilateral. Capillary fill time brisk, approximately 3 seconds bilateral toes when leg elevated. Nonpitting edema noted right ankle. Skin temp warm to cool proximal to distal bilateral. Neurological: Gross and epicritic sensation intact bilateral. Protective sensation intact as measured with Intervale Lizeth monofilament. Gross motor intact bilateral. Negative tinels/valliex upon neural light percussion. Dermatologic: Splint clean dry and intact right lower extremity. Negative for overt rashes or irregular pigmented lesions. Skin turgor within normal limits Additional Vitals No qualifying data available. Assessment/Plan 1. Closed nondisp fracture of right medial malleolus with routine healing Discussed risk of nonunion/malunion/possi ble need for surgical intervention. Patient relates understanding. -Evaluation and Management extensively on treatment regimen with time spent with patient dedicated to discussion of pathogenesis and treatment options for patient's problems including bracing, protection, and avoiding the need for operative intervention as well as the possibility of surgical intervention such as Open reduction and internal fixation. 3 views right ankle obtained, reviewed, and interpreted. No change in alignment of fracture. Continue nonweightbearing. Nonweightbearing right lower extremity. Patient return to clinic in 2 weeks for reevaluation and repeat radiographs right ankle. Cam boot dispensed. Discussed nonweightbearing range of motion exercises. Continue nonweightbearing. Continue knee scooter and crutches All questions and concerns answered. Patient and mother are amenable to plan. Return to clinic 2 weeks for new nonweightbearing radiographs right ankle. Medical Decision Making Given all the above, there is low risk of M/M associated with today's encounter and treatment plan. Chronic conditions NOT treated during this visit that affected my overall medical decision making: [] Treatment plans discussed but not opted for at this time: [] Prescribed medication that requires intensive monitoring for toxicity: [] I have reviewed the patient?s medication list for medication interactions/contraindi cations and/or for upcoming procedures: [yes Time Spent with the Patient I have personally spent [30] minutes on this date, directly related to today's patient visit, including pre and post visit work, for this date of service. Time listed does not include time spent on separately billable services. Problem List/Past Medical History Ongoing No qualifying data Historical No qualifying data Medications DME, See Instructions Allergies No Known Medication Allergies Social History Alcohol Never Substance Abuse Denies All Tobacco Never (less than 100 in lifetime) Use:. Diagnostic Results (07/04/2023 15:37 EST XR Ankle 3 Views Right) * Final Report * Reason For Exam pain Report 3 views right ankle demonstrate: Overlying splint material noted. Redemonstration of the radiolucency at the medial malleolus noted with no change in alignment of the known fracture. No other acute fracture dislocations noted. No increase in medial clear space. No increase in tib-fib clear space. No radiolucencies of the talar dome noted. Ankle mortise is well aligned and maintai (more content not included)... Normal [facility] XR Ankle 3 Views Righton XR Ankle 3 Views Right 3 views right ankle demonstrate: Overlying splint material noted. Redemonstration of the radiolucency at the medial malleolus noted with no change in alignment of the known fracture. No other acute fracture dislocations noted. No increase in medial clear space. No increase in tib-fib clear space. No radiolucencies of the talar dome noted. Ankle mortise is well aligned and maintained otherwise. No foreign bodies noted. No increase in soft tissue volume, density, or edema noted. No soft tissue calcifications noted. Final Signed by: Edi Arriaga DPM Signed (Electronic Signature): 07/04/2023 3:52 pm Transcribed DT/TM: 07/04/2023 3:52 (If Report Is Signed, Electronically Signed in Other Vendor System) Normal [facility] CNOVon 05-10-2022 CNOV Office Visit (PEDSWS ) AMERICODENIA Levy ([id number]) 1 M Date Time Provider Department 05/10/22 3:00 PM YOSEPH SCOTT PEDSHIMAS During your visit today, we recorded the following information about you: Temperature Pulse Respiration Weight 97.4 degrees 56/minute 16/minute 79.4 kg Yoseph Scott MD 05/11/2022 11:39 AM Signed Denia is a 21-year-old male (last seen for routine physical examination or any encounter with our office since May 30, 2019 ) who presents to the office today to review findings from the emergency room. Patient was seen on April 09, 2022 at the [facility] secondary to concerns regarding palpitations. Patient states he developed a fast heart rate. His Apple watch suggested his rate was 140 bpm. Episode lasted approximately 1 minute. He reports he had an episode several days earlier with a heart rate may have been 120. Family medical history is negative for any known diagnosis of prolonged QT syndrome, Brugada syndrome, [id number]-[id number]. History is negative in the family for drowning. Patient's father at the age of 50. Formal report from the document management consultant was traumatic head injury. His father had a hobby of racing automobiles on a track. He was driving approximately 150 mph where the crash occurred. The father did have a history of bicuspid aortic valve and had a mechanical replacement. He had no reports of arrhythmias according Denia. The paternal grandmother did have atrial fibrillation. Denia is unaware that any of the father's relatives had sudden . Prior to these episodes patient reports he would have an energy drink called Reign that was high in caffeine. He would drink 1 daily approximately 4 days/week. Since the emergency room episode he has stopped this. No reports of any tachycardia since. 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 In the local emergency room the patient had a Holter monitor placed. The report is available: No ectopic beats were reported. Average heart rate was 72 bpm and normal sinus rhythm. Minimum heart rate was 40 bpm and sinus bradycardia. The maximum heart rate was 176 bpm and sinus tachycardia. ACTIVE PROBLEM LIST Family History of First Degree Relative With Bicuspid Aortic Valve PAST MEDICAL HISTORY Diagnosis Date PMH - PAST MEDICAL HISTORY OF 01/28/06 Normal color vision PAST SURGICAL HISTORY Procedure Laterality Date CIRCUMCISION ALLERGIES No Known Allergies 05/10/22 1500 Pulse: (!) 56 Resp: 16 Temp: 36.3 ?C (97.4 ?F) TempSrc: Temporal Weight: 79.4 kg (175 lb) GENERAL: alert and active in no apparent distress, nontoxic-appearing HEAD: Normocephalic, atraumatic EYES: No scleral icterus NECK: Negative for anterior or posterior cervical adenopathy. No masses are present in the suprasternal notch. No supraclavicular adenopathy is present. Thyroid with normal consistency and without masses. No bruits. No JVD. CARDIOVASCULAR : Regular Rate and Rhythm without murmurs or clicks, well perfused LUNGS: clear to auscultation, excellent air exchange, easy respirations without grunting/flaring/retrac ting. ABDOMEN : Negative for hepatosplenomegaly MUSCULOSKELETAL: Extremities with FROM and no problems identified. EXTREMITIES: No clubbing, cyanosis, or edema. NEUROLOGICAL : Muscle tone normal and Normal age appropriate gait SKIN : normal color, no jaundice or rash and Normal skin turgor Impression: (Z82.79) Family history of first degree relative with bicuspid aortic valve (primary encounter diagnosis) (Z23) Encounter for immunization Sinus tachycardia Plan: Office Visit on 05/10/22 HUMAN PAPILLOMAVIRUS 9-VALENT HPV IM CONSULT TO CARDIOLOGY Education given. Course of illness/condition and rationale for treatment discussed. I spent a total of 25 minutes on the date of the service which included preparing to see the patient, [id number] patient care, completing clinical documentation, obtaining and/or reviewing separately obtained history, performing a medically appropriate examination, counseling and educating the patient/family/caregive r, and ordering medications, tests, or procedures. Follow-up Refer to cardiology for evaluation regarding the family history of bicuspid aortic valve Yoseph Scott MD [facility] Department of Pediatrics, [facility] Allergies As of Date: 05/10/2022 (No Known Allergies) Date Reviewed: 05/10/2022 Reviewed by: Mary Ellen Cortez Ma - Fully Assessed Reason for Visit: Other [Other] Cmt: Discuss results from [facility] ER Primary Visit Diagnosis:Family history of first degree relative with bicuspid aortic valve [Z82.79] Other Visit Diagnosis:Encounter for immunization [Z23] Order(s):CONSULT TO CARDIOLOGY [9004] Order #: [id number]: 1 FUTURE HUMAN PAPILLOMAVIRUS 9-VALENT HPV IM (more content not included)... Normal [facility] ER Physician Documentationon 05-03-2022 ER Physician Documentation [facility] Patient: DENIA PEDERSON [address] : [address] [place], [place] [address] Location: ER [phone] Unit #: [id number] ER Physician Documentation Service Date:04/20/22 ER Provider: Kyler hCun DO - Palpitations - Time Seen by Provider: 04/20/22 23:21 Arrival Mode: Private Vehicle Historian: Patient History of Present Illness Stated Complaint: PALPITATIONS Symptoms Began: Other (Ongoing since April 06) Symptoms Still Occurring: Still Present History of Present Illness: 21-year-old male presents emergency room with complaints of heart palpitations. Patient states that he first noticed the heart palpitations on April 06. Patient reports that he gets the heart palpitations and they last 20 to 30 seconds. Patient states that it is typically once a day, however in the last few days he has had the heart palpitations more frequently. Patient denies any cardiac history himself however he states that his grandparents do have extensive heart history. Patient reports that [place], where he had a full work-up. He states that everything was normal at that time and he was placed on a Holter monitor for 2 days. Patient states that as far as he knows everything looked okay. He does report that he did have some episodes of heart palpitations while wearing the heart monitor. Patient states that today was the first time that he felt slightly dizzy with a heart palpitations. Patient otherwise denies shortness of breath, nausea, vomiting, fever, and chills. Review of Systems Review of Systems Constitutional: denies Fever, Fatigue or Chills EENT: denies Sore throat or Runny nose Respiratory: denies Cough or Trouble breathing Cardiac: Palpitations Abdomen/GI: No symptoms; denies Nausea or Vomiting Genitourinary: No symptoms; denies Flank pain or Dysuria Skin: No symptoms; denies Itching or Rash Musculoskeletal: No symptoms; denies Muscle stiffness Neurological: Dizzy Psychiatric: No symptoms All other systems: Reviewed and negative except HPI Past Family Social History Medical AND Surgical History: Medical History (Updated 04/21/22 @ 00:45 by Yumiko garcia PA-C) Patient denies medical problems Surgica l History (Updated 04/20/22 @ 23:27 by Yanira gutierres RN) No pertinent pastsurgical history Exam Physical Exam: Patient presentation: Well appearing and No apparent distress Genera l Appearance: Positive Resting comfortable General Skin: Warm and Dr y General Mental Status: Alert General hydration: Moist mucous me mbranes Course Progress note Progress note: 04/21/2022 12:33 AM Patient was updated with results of ED work-up. Patient had an unremarkable examination. Patient will be referred to cardiology for further management. Patient is advised to return to the emergency department for any new or worsening symptoms. Patient is agreeable with plan of care and all of his questions have been answered. Orders/Results Orders: Orders Electrocardiogram 12 Lead Stat CTC 04/20/22 23:30 Ordered Laboratory Results: Laboratory 04/20/22 23:44: WBC 6.9, RBC 5.00, Hgb 15.7, Hct 44.8, MCV 89.5, MCH 31.3, MCHC 35.0, RDW 12.6, Plt Count 176, Neut % (Auto) 62.1, Lymph % (Auto) 25.0, Kingfisher % (Auto) 9.5, Eos % (Auto) 2.4, Baso % (Auto) 1.0, Nucleat RBC Rel Count 0.0, Absolute Neuts (auto) 4300, Absolute Lymphs (auto) 1700, Absolute Monos (auto) 700, Absolute Eos (auto) 200, Absolute Basos (auto) 100 04/20/22 23:44: PT 14.3 H, INR 1.24 H 04/20/22 23:44: Sodium 139, Potassium 3.8, Chloride 104, Carbon Dioxide 29, Anion Gap 6, BUN 22 H, Creatinine 1.11, GFR Calculation > 60, Random Glucose 87, Calcium 9.30, Magnesium 2.0, Troponin I High Sens 8 EKG Interpretation EKG #1: EKG review date: 04/20/22 EKG review time: 11:23 Computerized reading: Agree with computerized reading Interpretation: Normal EKG Comparison: No comparison available Heart rate: 61 Rate: Normal Rhythm: Sinus Vital Signs Vital Signs: Vital Signs 04/21/22 01:05 66 15 120/80 97 04/20/22 23:23 98.3 F 72 15 139/70 98 Medical Decision Making MDM: 04/20/2022 Room 8 22:00 Dr. Kyler Chun personally saw and evaluated the patient, discussed the management with the INDIRA, reviewed the INDIRA's note, and agrees with the documentation. Dr. Chun performed a substantive portion of the medical decision making as documented by the INDIRA. Upon examination, pt is in no acute distress and has no focal neurological deficits. Dr. Chun agrees with the POC of Yumiko Mercedes PA-C. Shared Attending Note Shared Attending Note (MARKIE 1,2,3): 04/20/2022 Room 8 22:00 [address]. Kyler Chun personally saw and evaluated the patient, discussed the management with the INDIRA, reviewed the INDIRA's note, and agrees with the documentation. Dr. Chun performed a substantive (more content not included)... Normal [facility] EKG Monitoringon 04-23-2022 EKG Monitoring [facility] Patient: DENIA PEDERSON REYMUNDO [address] : [address] [id number] Location: [place] [address] Unit #: [id number] [facility] #: [id number] Ordering Phys: Yumiko Mercedes PA-C EKG Monitoring Abby Espinal DO Exam Date/Time Apr 20 2022 23:23:23 Test Reason : Hand to provider for interpretation (Goal: <=10min Blood Pressure : / mmHG Vent. Rate : 061 BPM Atrial Rate : 061 BPM P-R Int : 126 ms QRS Dur : 090 ms QT Int : 360 ms P-R-T Axes : 019 017 034 degrees QTc Int : 362 ms Normal sinus rhythm Normal ECG No previous ECGs available Confirmed by ABBY ESPINAL DO ([id number]) on 04/23/2022 6:13:29 PM Referred By: Yumiko Mercedes Confirmed By:ABBY ESPINAL DO Dictated by: Abby Espinal DO on 04/20/222322 Transcribed by: YoungCurrent - on 04/23/221812 Report Signed by: Abby Espinal DO on 04/23/221812 Normal [facility] Basic Metabolic,Non-Fastingo n 04-21-2022 Anion gap [Moles/Vol] 6 mmol/L Normal 4-12 [facility] Comment on above: Performed By: #### L 400.0152, L400.5100, L400.0415 #### Main Laboratory ([facility]) [address] [place] [address] Luis Vazquez MD Calcium [Mass/Vol] 9.30 mg/dL Normal 8.8-10.5 [facility] Comment on above: Performed By: #### L 400.0152, L400.5100, L400.0415 #### Main Laboratory ([facility]) [address] [place] [address] Luis Vazquez MD Chloride [Moles/Vol] 104 mmol/L Normal 101-111 [facility] Comment on above: Performed By: #### L 400.0152, L400.5100, L400.0415 #### Main Laboratory ([facility]) [address] [place] [address] Luis Vazquez MD CO2 [Moles/Vol] 29 mmol/L Normal 21-32 [facility] Comment on above: Performed By: #### L 400.0152, L400.5100, L400.0415 #### Main Laboratory ([facility]) [address] [place] [address] Luis Vazquez MD Creatinine [Mass/Vol] 1.11 mg/dL Normal 0.60-1.30 [facility] Comment on above: Performed By: #### L 400.0152, L400.5100, L400.0415 #### Main Laboratory ([facility]) [address] [place] [address] Luis Vazquez MD GFR Calculation > 60 Normal [facility] Comment on above: Result Comment: Rubber Trimmer nancie Kidney Disease stages by NKDF Stage eGFR I >90 II 60-89 III 30-59 IV 15-29 V <15 or dialysis AGE(years) AVERAGE GFR 20-29 116 ml/min/1.73 square meters Note:This result is normalized to 1.73 square meter body surface area. Height and weight are not factored. Performed By: #### L 400.0152, L400.5100, L400.0415 #### Main Laboratory ([facility]) [address] [place] [address] Luis Vazquez MD Glucose [Mass/Vol] 87 mg/dL Normal 70-110 [facility] Comment on above: Result Comment: *Thi s reference range applies to fasting specimens only. Performed By: #### L 400.0152, L400.5100, L400.0415 #### Main Laboratory ([facility]) [address] [place] [address] Luis Vazquez MD Potassium [Moles/Vol] 3.8 mmol/L Normal 3.6-5.0 [facility] Comment on above: Performed By: #### L 400.0152, L400.5100, L400.0415 #### Main Laboratory ([facility]) [address] [place] [address] Luis Vazquez MD Sodium [Moles/Vol] 139 mmol/L Normal 135-145 [facility] Comment on above: Performed By: #### L 400.0152, L400.5100, L400.0415 #### Main Laboratory ([facility]) [address] [place], [facility] Luis Vazquez MD Urea nitrogen [Mass/Vol] 22 mg/dL High 7-20 [facility] Comment on above: Performed By: #### L 400.0152, L400.5100, L400.0415 #### Main Laboratory ([facility]) [address] [place], [facility] Luis Vazquez MD CBC with Differentialon 12-0 Abs Baso Count 100 /cmm Normal 0-200 [facility] Comment on above: Order Comment: Reaso n for procedure Chest Pain symptoms Performed By: #### L 100.0000 #### Main Laboratory ([facility]) [address] [place] [address] Luis Vazquez MD Abs Eos Count 200 /cmm Normal 0-500 [facility] Comment on above: Order Comment: Reaso n for procedure Chest Pain symptoms Performed By: #### L 100.0000 #### Main Laboratory ([facility]) [address] [place] [address] Luis Vazquez MD Abs Lymph Count 1700 /cmm Normal 8104-9869 [facility] Comment on above: Order Comment: Reaso n for procedure Chest Pain symptoms Performed By: #### L 100.0000 #### Main Laboratory ([facility]) [address] [place] [address] Luis Vazquez MD Abs Kingfisher Count 700 /cmm Normal 0-800 [facility] Comment on above: Order Comment: Reaso n for procedure Chest Pain symptoms Performed By: #### L 100.0000 #### Main Laboratory ([facility]) [address] [place] [address] Luis Vazquez MD Abs Neut Count 4300 /cmm Normal 2932-6188 [facility] Comment on above: Order Comment: Reaso n for procedure Chest Pain symptoms Performed By: #### L 100.0000 #### Main Laboratory ([facility]) [address] [place] [address] Luis Vazquez MD Basophils/100 WBC (Bld) 1.0 % Normal 0-2 [facility] Comment on above: Order Comment: Reaso n for procedure Chest Pain symptoms Performed By: #### L 100.0000 #### Main Laboratory ([facility]) [address] [place] [address] Luis Vazquez MD EOS-Auto Diff 2.4 % Normal 0-6 [facility] Comment on above: Order Comment: Reaso n for procedure Chest Pain symptoms Performed By: #### L 100.0000 #### Main Laboratory ([facility]) [address] [place] [address] Luis Vazquez MD Erythrocyte distribution width (RBC) [Ratio] 12.6 % Normal 12.0-16.0 [facility] Comment on above: Order Comment: Reaso n for procedure Chest Pain symptoms Performed By: #### L 100.0000 #### Main Laboratory ([facility]) [address] [place] [address] Luis Vazquez MD Hematocrit (Bld) [Volume fraction] 44.8 % Normal 40.0-49.0 [facility] Comment on above: Order Comment: Reaso n for procedure Chest Pain symptoms Performed By: #### L 100.0000 #### Main Laboratory ([facility]) [address] [place] [address] Luis Vazquez MD Hemoglobin (Bld) [Mass/Vol] 15.7 g/dL Normal 13.5-16.5 [facility] Comment on above: Order Comment: Reaso n for procedure Chest Pain symptoms Performed By: #### L 100.0000 #### Main Laboratory ([facility]) [address] [place] [place] [address] Luis Vazquez MD Lymphocytes/100 WBC (Bld) 25.0 % Normal 15-45 [facility] Comment on above: Order Comment: Reaso n for procedure Chest Pain symptoms Performed By: #### L 100.0000 #### Main Laboratory ([facility]) [address] [place] [place] [address] Luis Vazquez MD MCH (RBC) [Entitic mass] 31.3 pg Normal 27.5-33.0 [facility] Comment on above: Order Comment: Reaso n for procedure Chest Pain symptoms Performed By: #### L 100.0000 #### Main Laboratory ([facility]) [address] [place] [address] Luis Vazquez MD MCHC (RBC) [Mass/Vol] 35.0 g/dL Normal 33.0-36.0 [facility] Comment on above: Order Comment: Reaso n for procedure Chest Pain symptoms Performed By: #### L 100.0000 #### Main Laboratory ([facility]) [address] [place] [address] Luis Vazquez MD MCV 89.5 CU SEAN Normal 80-97 [facility] Comment on above: Order Comment: Reaso n for procedure Chest Pain symptoms Performed By: #### L 100.0000 #### Main Laboratory ([facility]) [address] [place] [place] [address] Luis Vazquez MD Kingfisher- Auto Diff 9.5 % Normal 2-10 [facility] Comment on above: Order Comment: Reaso n for procedure Chest Pain symptoms Performed By: #### L 100.0000 #### Main Laboratory ([facility]) [address] [place] [address] Luis Vazquez MD Neut-Auto Diff 62.1 % Normal 40-70 [facility] Comment on above: Order Comment: Reaso n for procedure Chest Pain symptoms Performed By: #### L 100.0000 #### Main Laboratory ([facility]) [address] [place] [address] Luis Vazquez MD NRBC-Auto 0.0 /100 WBC Normal <1 [facility] Comment on above: Order Comment: Reaso n for procedure Chest Pain symptoms Performed By: #### L 100.0000 #### Main Laboratory ([facility]) [address] [place] [address] Luis Vazquez MD Platelet Count 176 th/cmm Normal 150-400 [facility] Comment on above: Order Comment: Reaso n for procedure Chest Pain symptoms Performed By: #### L 100.0000 #### Main Laboratory ([facility]) [address] [place] [address] Luis Vazquez MD RBC 5.00 mil/cmm Normal 4.50-6.00 [facility] Comment on above: Order Comment: Reaso n for procedure Chest Pain symptoms Performed By: #### L 100.0000 #### Main Laboratory ([facility]) [address] [place] [address] Luis Vazquez MD WBC 6.9 th/cmm Normal 4.4-10.5 [facility] Comment on above: Order Comment: Reaso n for procedure Chest Pain symptoms Performed By: #### L 100.0000 #### Main Laboratory ([facility]) [address] [place] [address] Luis Vazquez MD Magnesiumon 04-21-2022 Magnesium [Mass/Vol] 2.0 mg/dL Normal 1.8-2.5 [facility] Comment on above: Performed By: #### L 400.0152, L400.5100, L400.0415 #### Main Laboratory ([facility]) [address] [place] [address] Luis Vazquez MD Prothrombin Timeon INR Coag (PPP) [Relative time] 1.24 {INR} High 0.9-1.2 [facility] Comment on above: Order Comment: Reaso n for procedure Chest Pain symptoms Is Patient on Coumadin (Warfarin)? Unknown Result Comment: Mickey dard dose INR: 2.0-3.0 High dose INR: 2.5-3.5 Performed By: #### L 200.0200 #### Main Laboratory ([facility]) [address] [place] [address] Luis Vazquez MD PT Coag (PPP) [Time] 14.3 s High 9.6-13.3 [facility] Comment on above: Order Comment: Reaso n for procedure Chest Pain symptoms Is Patient on Coumadin (Warfarin)? Unknown Performed By: #### L 200.0200 #### Main Laboratory ([facility]) [address] [place] [address] Luis Vazquez MD XR Chest 1 View Portableon 1 06-22-2021 XR Chest 1 View Portable [facility] Radiology Department Patient: DENIA PEDERSON [address] : 2000 Sex: [place] [address] Location: [place] [address] Unit #: [id number] Ordering Phys: Yumiko Mercedes PA-C Exam Date: 04/20/22 Exam: MAIN XR Chest 1 View Portable Result: See Report STUDY: X-RAY CHEST REASON FOR EXAM: Male, 21 years old. pt complains of heart palpitations that started 2 weeks ago. pt states palpitations now start with burning sensations. no previous hx TECHNIQUE: AP portable. 2334 hours COMPARISON: None. FINDINGS: LUNGS: No consolidation. No pneumothorax. MEDIASTINUM: Unremarkable. CARDIAC SILHOUETTE: Not enlarged. BONES AND SOFT TISSUES: No acute abnormalities. IMPRESSION: No evidence of active intrathoracic disease. Electronically Signed: Zee Santiago MD at 0:15 EST , cc: Yumiko Mercedes PA-C; None Dictated by: Zee Santiago MD on 04/21/2214 Technologist: RT Vickie Collier (R) Transcribed by: Zee Santiago MD on 04/21/2214 Report Signed by: Jack MARY,Zee Olivarez on 04/21/2214 Normal [facility] hs Troponin I Profileon hs Troponin-I 8 ng/L Normal 0-20 [facility] Comment on above: Result Comment: Trop onin I, High Sensitivity is below the upper reference limit (21 ng/L) and results are not consistent with myocardial infarction or injury, provided the specimen was collected more than 3-hours from the onset of symptoms. Patients with active symptoms, ischemic ECG changes and/or concerning clinical presentations should be considered for urgent evaluation irrespective of troponin results. Performed By: #### L 400.0152, L400.5100, L400.0415 #### Main Laboratory ([facility]) [address] [place] [address] Luis Vazquez MD Basophils Auto (Bld) [#/Vol] on 04-20-2022 Basophils (Bld) [#/Vol] 100 /cmm 0-200 [facility] Work Phone: Basophils/100 WBC Auto (Bld) on 04-20-2022 Basophils/100 WBC (Bld) 1.0 % 0-2 [facility] Work Phone: Blood anion gapon 04-20-2022 Anion gap (Bld) [Moles/Vol] 6 mmol/L 4-12 [facility] Work Phone: Blood coagulation panelon Blood coagulation panel 200 /cmm 0-500 [facility] Work Phone: Blood hematocrit (volume fra ction)on 04-20-2022 Hematocrit (Bld) [Volume fraction] 44.8 % 40.0-49.0 [facility] Work Phone: Blood hemoglobin measurement (mass/volume)on 04-20-2022 Hemoglobin (Bld) [Mass/Vol] 15.7 g/dL 13.5-16.5 [facility] Work Phone: Eosinophils/100 WBC Auto (Bl d)on 04-20-2022 Eosinophils/100 WBC (Bld) 2.4 % 0-6 [facility] Work Phone: Erythrocyte distribution wid th ratioon 04-20-2022 Erythrocyte distribution width (RBC) [Ratio] 12.6 % 12.0-16.0 [facility] Work Phone: Lymphocytes/100 WBC Auto (Bl d)on 04-20-2022 Lymphocytes/100 WBC (Bld) 25.0 % 15-45 [facility] Work Phone: MCH Auto (RBC) [Entitic mass ]on 04-20-2022 MCH (RBC) [Entitic mass] 31.3 pg 27.5-33.0 [facility] Work Phone: MCHC Auto (RBC) [Mass/Vol]on 04-20-2022 MCHC (RBC) [Mass/Vol] 35.0 g/dL 33.0-36.0 [facility] Work Phone: MCV Auto (RBC) [Entitic vol] on 04-20-2022 MCV (RBC) [Entitic vol] 89.5 CU SEAN 80-97 [facility] Work Phone: Monocytes Auto (Bld) [#/Vol] on 04-20-2022 Monocytes (Bld) [#/Vol] 700 /cmm 0-800 [facility] Work Phone: Monocytes/100 WBC Auto (Bld) on 04-20-2022 Monocytes/100 WBC (Bld) 9.5 % 2-10 [facility] Work Phone: Neutrophils/100 WBC Auto (Bl d)on 04-20-2022 Neutrophils/100 WBC (Bld) 62.1 % 40-70 [facility] Work Phone: No Panel Informationon 04-20 Absolute Lymphocytes (auto) 1700 /cmm 4595-0913 [facility] Work Phone: Absolute Neutrophils (auto) 4300 /cmm 6930-2177 [facility] Work Phone: Glomerular Filtration Rate Calc > 60 >60 [facility] Work Phone: Comment on above: AGE(years) AVERAGE G FR 20-29 116 ml/min/1.73 square metersNote:This result is normalized to 1.73 square meter body surface area. Height and weight are not factored.Chronic Kidney Disease stages by NKDFStage eGFR I >90 II 60-89 III 30-59 IV 15-29 V <15 or dialysis Nucleated RBC Auto (Bld) [#/ Vol]on 04-20-2022 Nucleated RBC (Bld) [#/Vol] 0.0 /100 WBC <1 [facility] Work Phone: Platelet poor plasma interna tional normalized ratio (INR)on 04-20-2022 INR Coag (PPP) [Relative time] 1.24 {INR} High 0.9-1.2 [facility] Work Phone: Comment on above: Standard dose INR: 2 .0-3.0High dose INR: 2.5-3.5 Platelets Auto (Bld) [#/Vol] on 04-20-2022 Platelets (Bld) [#/Vol] 176 th/cmm 150-400 [facility] Work Phone: Prothrombin time (PT) in nedra telet poor plasma by coagulation assayon 04-20-2022 PT Coag (PPP) [Time] 14.3 s High 9.6-13.3 [facility] Work Phone: RBC Auto (Bld) [#/Vol]on RBC (Bld) [#/Vol] 5.00 mil/cmm 4.50-6.00 [facility] Work Phone: Serum or plasma calcium ector urement (mass/volume)on 04-20-2022 Calcium [Mass/Vol] 9.30 mg/dL 8.8-10.5 [facility] Work Phone: Serum or plasma carbon dioxi de, total measurement (moles/volume)on 04-20-2022 CO2 [Moles/Vol] 29 mmol/L 21-32 [facility] Work Phone: Serum or plasma cardiac trop onin I panel by high sensitivity methodon 04-20-2022 Tropinin I.cardiac panel High sensitivity method 8 ng/L 0-20 [facility] Work Phone: Comment on above: Troponin I, High Sen sitivity is below the upper reference limit (21 ng/L) and results are not consistent with myocardial infarction or injury, provided the specimen was collected more than 3-hours from the onset of symptoms. Patients with active symptoms, ischemic ECG changes and/or concerning clinical presentations should be considered for urgent evaluation irrespective of troponin results. Serum or plasma chloride lola surement (moles/volume)on 04-20-2022 Chloride [Moles/Vol] 104 mmol/L 101-111 [facility] Work Phone: Serum or plasma creatinine m easurement (mass/volume)on 04-20-2022 Creatinine [Mass/Vol] 1.11 mg/dL 0.60-1.30 [facility] Work Phone: Serum or plasma glucose ector urement (mass/volume)on 04-20-2022 Glucose [Mass/Vol] 87 mg/dL 70-110 [facility] Work Phone: Comment on above: *This reference rang e applies to fasting specimens only. Serum or plasma magnesium me asurement (mass/volume)on 04-20-2022 Magnesium [Mass/Vol] 2.0 mg/dL 1.8-2.5 [facility] Work Phone: Serum or plasma potassium me asurement (moles/volume)on 04-20-2022 Potassium [Moles/Vol] 3.8 mmol/L 3.6-5.0 [facility] Work Phone: Serum or plasma sodium measu rement (moles/volume)on 04-20-2022 Sodium [Moles/Vol] 139 mmol/L 135-145 [facility] Work Phone: Serum or plasma urea nitroge n measurement (mass/volume)on 04-20-2022 Urea nitrogen [Mass/Vol] 22 mg/dL High 7-20 [facility] Work Phone: WBC Auto (Bld) [#/Vol]on WBC (Bld) [#/Vol] 6.9 th/cmm 4.4-10.5 [facility] Work Phone: Rissa 04-16-2022 ROMINAN Telephone (PEDSWS) DENIA PEDERSON ([id number]) 1 M Date Time Provider Department 04/16/22 YOSEPH SCOTT During your visit today, we recorded the following information about you: Dutch Quiroga RN 04/16/2022 3:25 PM Signed Patient was in [place] ER and a Holter Monitor was placed, mother was told to call PCP office for results as Cardiology would fax results to our office. Results in box for review. Dutch Babb RN 04/17/2022 2:25 PM Signed Mother questions if any update on results? Juan Babb RN 05/04/2022 2:12 PM Signed Mother calls requesting results of holter monitor. Juan Scott MD 05/05/2022 11:39 AM Signed As discussed with the nurses previously the patient has not been seen in the office for almost 3 years (last visit was May 2019 ), he has not been seen for this problem and I did not order this testing (the ordering provider is responsible for monitoring the results). If the family wants to review the results he needs to be seen for the problem in the office. The patient is also 21 and needs to transition to adult care. MD Juan Alonso RN 05/07/2022 9:02 AM Signed Mother notified and voiced understanding of below as directed by Dr. Scott. An appointment was already scheduled for 05/10/22. Mother states that she is aware that patient will need to be transitioning to adult medicine. She will be scheduling this in the future. Juan Babb RN Allergies As of Date: 04/16/2022 (No Known Allergies) Date Reviewed: 09/11/2019 Reviewed by: Adrienne Covarrubias LPN - Fully Assessed Reason for Visit: Results [95] Prescriptions as of 05/07/2022 - amino ac/whey prot conc, isol (WHEY PROTEIN ORAL) Take by mouth. 3-5 times per week after workouts - Multivitamin capsule Take 1 capsule by mouth once daily. With fish oil Problem List As Of Date 04/16/2022 Noted Resolved Family history of first degree relative with bi*05/30/2019 Encounter Status:Closed by JUAN BABB RN on 05/07/22 Normal [facility] 12 Lead EKGon 04-10-2022 12 Lead EKG [facility] Cardiovascular Services [address] [place] [address] 12 Lead EKG 04/09/22 2144 MR#: [id number] Acct: [id number] Name: DENIA PEDERSON Rep #: [id number] : 2000 21 From: Julien Clarke MD Attending Dr: Status: DEP ER Ordering Dr: Mickey Coleman DO Date: 04/09/22 Location: ED Sex: M C Admitted: Test Reason : PALPS Blood Pressure : / mmHG Vent. Rate : 063 BPM Atrial Rate : 068 BPM P-R Int : 116 ms QRS Dur : 090 ms QT Int : 362 ms P-R-T Axes : 036 036 062 degrees QTc Int : 370 ms Normal sinus rhythm Normal ECG Confirmed by IRENA MARY, JULIEN ([id number]), film editor JUAN SOLORZANO ([id number]) on 04/10/2022 8:41:18 AM Referred By: AR Confirmed By:JULIEN CLARKE MD 04/10/22 0841 Date Julien Clarke MD CC: Dr. Yoseph Scott MD; Dr. Mickey Coleman DO Signed Normal [facility] Basic Metabolic Profile (BMP )on 04-10-2022 BUN/CRE 30.9 RATIO High 10-20 [facility] Comment on above: Performed By: #### L 500.2500, L100.0100, L501.9520 #### [facility] Laboratory [address] [place], [address] CA,Total 9.2 mg/dL Normal 8.5-10.1 [facility] Comment on above: Performed By: #### L 500.2500, L100.0100, L501.9520 #### [facility] [address] [place], [address] Chloride [Moles/Vol] 107 mmol/L Normal 98-107 [facility] Comment on above: Performed By: #### L 500.2500, L100.0100, L501.9520 #### [facility] [address] [place], [address] CO2 [Moles/Vol] 25.0 mmol/L Normal 21.0-32.0 [facility] Comment on above: Performed By: #### L 500.2500, L100.0100, L501.9520 #### [facility] [address] [place], [address] Creatinine [Mass/Vol] 0.87 mg/dL Normal 0.70-1.30 [facility] Comment on above: Result Comment: The validity of the calculated GFR GFRAA in patients over 70 years has not been determined. Clinical correlation is essential. Performed By: #### L 500.2500, L100.0100, L501.9520 #### [facility] [address] [place], [address] ECRCL 138.68 ml/min Normal [facility] Comment on above: Performed By: #### L 500.2500, L100.0100, L501.9520 #### [facility] [address] [place], [address] EST GFR - AA 141 mL/min Normal >60 [facility] Comment on above: Result Comment: Afri can Czech GFR Calc Performed By: #### L 500.2500, L100.0100, L501.9520 #### [facility] [address] [place], [address] GAP 7 Normal 5-15 [facility] Comment on above: Performed By: #### L 500.2500, L100.0100, L501.9520 #### [facility] [address] [place], [address] GFR/1.73 sq M.predicted among non-blacks MDRD (S/P/Bld) [Vol rate/Area] 117 mL/min/{1.73_m2} Normal >60 [facility] Comment on above: Result Comment: Non- GFR Calc Performed By: #### L 500.2500, L100.0100, L501.9520 #### [facility] [address] [place], [address] Glucose [Mass/Vol] 108 mg/dL High 74-106 [facility] Comment on above: Result Comment: Fast ing Glucose result from 100 to 125 mg/dL suggests IMPAIRED HOMEOSTASIS per A.D.A. criteria. Performed By: #### L 500.2500, L100.0100, L501.9520 #### [facility] [address] [place], [address] Potassium [Moles/Vol] 3.7 mmol/L Normal 3.5-5.1 [facility] Comment on above: Performed By: #### L 500.2500, L100.0100, L501.9520 #### [facility] [address] [place], [address] Sodium [Moles/Vol] 139 mmol/L Normal 136-145 [facility] Comment on above: Performed By: #### L 500.2500, L100.0100, L501.9520 #### [facility] [address] [place], [address] Urea nitrogen [Mass/Vol] 27 mg/dL High 7-18 [facility] Comment on above: Performed By: #### L 500.2500, L100.0100, L501.9520 #### [facility] [address] [place], [address] CBC W/Diff, Automatedon 11-2 Absolute Lymph 1.55 X10 3/uL Normal 0.83-4.51 [facility] Comment on above: Performed By: #### L 500.2500, L100.0100, L501.9520 #### [facility] [address] [place], [address] Absolute Neut 3.9 X10 3/uL Normal 2.0-7.7 [facility] Comment on above: Performed By: #### L 500.2500, L100.0100, L501.9520 #### [facility] [address] [place], [address] Basophils/100 WBC (Bld) 0.5 % Normal 0-1 [facility] Comment on above: Performed By: #### L 500.2500, L100.0100, L501.9520 #### [facility] [address] [place], [address] Eosinophils/100 WBC (Bld) 2.6 % Normal 0-5 [facility] Comment on above: Performed By: #### L 500.2500, L100.0100, L501.9520 #### [facility] [address] [place], [address] Erythrocyte distribution width (RBC) [Ratio] 11.9 % Normal 11.6-14.6 [facility] Comment on above: Performed By: #### L 500.2500, L100.0100, L501.9520 #### [facility] [address] [place], [address] Hematocrit (Bld) [Volume fraction] 47.5 % Normal 40-54 [facility] Comment on above: Performed By: #### L 500.2500, L100.0100, L501.9520 #### [facility] [address] [place], [address] Hemoglobin (Bld) [Mass/Vol] 17.0 g/dL High 13.0-16.5 [facility] Comment on above: Performed By: #### L 500.2500, L100.0100, L501.9520 #### [facility] [address] [place], [address] IG% 0.300 Normal 0.0-0.9 [facility] Comment on above: Result Comment: IG% - Immature Granulocytes (promyelocytes, myelocytes and metamyelocytes) > 1% indicates that a LEFT SHIFT is Present. Performed By: #### L 500.2500, L100.0100, L501.9520 #### [facility] [address] [place], [address] Lymphocytes/100 WBC (Bld) 25.0 % Normal 19-41 [facility] Comment on above: Performed By: #### L 500.2500, L100.0100, L501.9520 #### [facility] [address] [place], [address] MCH (RBC) [Entitic mass] 31.2 pg Normal 27.0-32.0 [facility] Comment on above: Performed By: #### L 500.2500, L100.0100, L501.9520 #### [facility] [address] [place], [address] MCHC (RBC) [Mass/Vol] 35.8 g/dL Normal 32-36 [facility] Comment on above: Performed By: #### L 500.2500, L100.0100, L501.9520 #### [facility] [address] [place], [address] MCV (RBC) [Entitic vol] 87.2 fL Normal 80-94 [facility] Comment on above: Performed By: #### L 500.2500, L100.0100, L501.9520 #### [facility] [address] [place], [address] Monocytes/100 WBC (Bld) 8.7 % Normal 0-10 [facility] Comment on above: Performed By: #### L 500.2500, L100.0100, L501.9520 #### [facility] [address] [place], [address] Neutrophils/100 WBC (Bld) 62.9 % Normal 47-70 [facility] Comment on above: Performed By: #### L 500.2500, L100.0100, L501.9520 #### [facility] [address] [place], [address] Nucleated RBC (Bld) [#/Vol] 0 10*3/uL Normal 0-5 [facility] Comment on above: Performed By: #### L 500.2500, L100.0100, L501.9520 #### [facility] [address] [place], [address] Platelet mean volume (Bld) [Entitic vol] 9.8 fL Normal 6.2-12.0 [facility] Comment on above: Performed By: #### L 500.2500, L100.0100, L501.9520 #### [facility] [address] [place], [address] Platelets (Bld) [#/Vol] 193 10*3/uL Normal 150-450 [facility] Comment on above: Performed By: #### L 500.2500, L100.0100, L501.9520 #### [facility] [address] [place], [address]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 the service which included preparing to see the patient, [id number] patient care, completing clinical documentation, obtaining and/or reviewing separately obtained history, performing a medically appropriate examination, counseling and educating the patient/family/caregiver, and ordering medications, tests, or procedures. Follow-up Refer to cardiology for evaluation regarding the family history of bicuspid aortic valve Yoseph Scott MD [facility] Department of Pediatrics, [facility] History of Present illness Narrative 05-10-2022 Yoseph Scott MD - 05/10/2022 5:37 PM EST Note Date & Type Note Facility 05-10-2022 History of Presen t illness Narrative Denia is a 21-year-old male (last seen for routine physical examination or any encounter with our office since May 30, 2019 ) who presents to the office today to review findings from the emergency room. Patient was seen on April 09, 2022 at the [facility] secondary to concerns regarding palpitations. Patient states he developed a fast heart rate. His Apple watch suggested his rate was 140 bpm. Episode lasted approximately 1 minute. He reports he had an episode several days earlier with a heart rate may have been 120. Family medical history is negative for any known diagnosis of prolonged QT syndrome, Brugada syndrome, Zrwax-Zkxgnphkg-Yehww. History is negative in the family for drowning. Patient's father at the age of 50. Formal report from the document management consultant was traumatic head injury. His father had a hobby of racing automobiles on a track. He was driving approximately 150 mph where the crash occurred. The father did have a history of bicuspid aortic valve and had a mechanical replacement. He had no reports of arrhythmias according Denia. The paternal grandmother did have atrial fibrillation. Denia is unaware that any of the father's relatives had sudden . Prior to these episodes patient reports he would have an energy drink called Reign that was high in caffeine. He would drink 1 daily approximately 4 days/week. Since the emergency room episode he has stopped this. No reports of any tachycardia since. 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 In the local emergency room the patient had a Holter monitor placed. The report is available: No ectopic beats were reported. Average heart rate was 72 bpm and normal sinus rhythm. Minimum heart rate was 40 bpm and sinus bradycardia. The maximum heart rate was 176 bpm and sinus tachycardia. ACTIVE PROBLEM LIST Family History of First Degree Relative With Bicuspid Aortic Valve PAST MEDICAL HISTORY Diagnosis Date PMH - PAST MEDICAL HISTORY OF 01/28/06 Normal color vision PAST SURGICAL HISTORY Procedure Laterality Date CIRCUMCISION ALLERGIES No Known Allergies 05/10/22 1500 Pulse: (!) 56 Resp: 16 Temp: 36.3 C (97.4 F) TempSrc: Temporal Weight: 79.4 kg (175 lb) GENERAL: alert and active in no apparent distress, nontoxic-appearing HEAD: Normocephalic, atraumatic EYES: No scleral icterus NECK: Negative for anterior or posterior cervical adenopathy. No masses are present in the suprasternal notch. No supraclavicular adenopathy is present. Thyroid with normal consistency and without masses. No bruits. No JVD. CARDIOVASCULAR : Regular Rate and Rhythm without murmurs or clicks, well perfused LUNGS: clear to auscultation, excellent air exchange, easy respirations without grunting/flaring/retracting. ABDOMEN : Negative for hepatosplenomegaly MUSCULOSKELETAL: Extremities with FROM and no problems identified. EXTREMITIES: No clubbing, cyanosis, or edema. NEUROLOGICAL : Muscle tone normal and Normal age appropriate gait SKIN : normal color, no jaundice or rash and Normal skin turgor Impression: (Z82.79) Family history of first degree relative with bicuspid aortic valve (primary encounter diagnosis) (Z23) Encounter for immunization Sinus tachycardia Plan: Office Visit on 05/10/22 HUMAN PAPILLOMAVIRUS 9-VALENT HPV IM CONSULT TO CARDIOLOGY Education given. Course of illness/condition and rationale for treatment discussed. I spent a total of 25 minutes on the date of the service which included preparing to see the patient, [id number] patient care, completing clinical documentation, obtaining and/or reviewing separately obtained history, performing a medically appropriate examination, counseling and educating the patient/family/caregiver, and ordering medications, tests, or procedures. Follow-up Refer to cardiology for evaluation regarding the family history of bicuspid aortic valve Yoseph Scott MD [facility] Department of Pediatrics, [facility] documented in this encounter [facility] Note 05-07-2022 Telephone Encounter - Juan Babb RN - 05/07/2022 8:59 AM ESTTelephone Encounter - Yoseph Scott MD - 05/05/2022 11:38 AM ESTTelephone Encounter - Juan Babb RN - 05/04/2022 2:12 PM EST Note Date & Type Note Facility 05-07-2022 Miscellaneous Notes Formattin g of this note might be different from the original. Mother notified and voiced understanding of below as directed by Dr. Scott. An appointment was already scheduled for 05/10/22. Mother states that she is aware that patient will need to be transitioning to adult medicine. She will be scheduling this in the future. Juan Babb RN As discussed with the nurses previously the patient has not been seen in the office for almost 3 years (last visit was May 2019 ), he has not been seen for this problem and I did not order this testing (the ordering provider is responsible for monitoring the results). If the family wants to review the results he needs to be seen for the problem in the office. The patient is also 21 and needs to transition to adult care. Yoseph Scott MD Mother calls requesting results of holter monitor. Juan Babb RN Mother questions if any update on results? Juan Babb RN Patient was in [place] ER and a Holter Monitor was placed, mother was told to call PCP office for results as Cardiology would fax results to our office. Results in box for review. Dutch Quiroga RN documented in this encounter [facility] Evaluation note Note Date & Type Note Facility Evaluation note No assessment information availa [facility] Work Phone: Evaluation note Note Date & Type Note Facility Evaluation note Diagnosis Family history of first degree relative with bicuspid aortic valve- Primary Family history of other cardiovascular diseases Encounter for immunization Need for other specified prophylactic vaccination against single bacterial disease documented in this encounter [facility] Discharge instructions Note Date & Type Note Facility Hospital Discharge instructions Additional Instructions EKG and labs normal. Flu negative. Return for Holter monitor placement tomorrow as an outpatient. Return if any worsening symptoms. [facility] Work Phone: Hospital Discharge instructions Note Date & Type Note Facility Hospital Discharge instructions Additional Instructions Please follow-up with cardiology, Dr. Espinal. You will find her contact information below. Please give her office a call for an upcoming appointment Return to the emergency department immediately for any new or worsening symptoms. [facility] Work Phone: Chief Complaint and Reason for Visit Chief Complaint palpitations Chief Complaint palpitations PALPITATIONS Chief Complaint PALPITATIONS Advance Directives No Advanced Directives Records Found Advance Directive Response Recorded Date/ Time Living Will No April 09 9:45pm Power of Rehabilitation Team Lead No April 09, 2022 9:45pm Advance Directive Response Recorded Date/ Time [facility] DNR Comfort Care Unknown D [id number] 11:27pm [facility] DNR Comfort Care Arrest Unknown April 20, 2022 11:27pm Living Will Unknown April 20 11:27pm Durable Power of Rehabilitation Team Lead for Health Care Unknow n April 20, 2022 11:27pm Summary Purpose Family History No Family History Records FoundNo Family History Records FoundNo Family History Records FoundNo Family History Records FoundNo Family History Records Found Reason for Referral Specialty Diagnoses / Procedures Referred By Debra t Referred To Contact Cardiology Diagnoses Family history of first degree relative with bicuspid aortic valve Procedures CONSULT TO CARDIOLOGY OFFICE/OUTPATIENT [facility] 60-74 MINUTES Yoseph Scott MD [address] [place] [address] Referral ID Status Reason Start Date Expiration Date Visits Requested Visits Authorized [id number] Authorized PCP Requested Referral 2 05/10/2023 1 1 Additional Source Comments Goals (unrecognized section and content) Goals may be documented in a n alternate sectionGoals may be documented in an alternate sectionGoals may be documented in an alternate section Source Comments (unrecognize d section and content) In the event this informatio n is protected by the Federal Confidentiality of Alcohol and Drug Abuse Patient Records regulations: The Federal rules restrict any use of the information to criminally investigate or prosecute any alcohol or drug abuse [facility] the event this information is protected by the Federal Confidentiality of Alcohol and Drug Abuse Patient Records regulations: The Federal rules restrict any use of the information to criminally investigate or prosecute any alcohol or drug abuse patient.[facility] Reason for Visit (unrecogniz ed section and content) Reason Comments Results Reason Comments Other Discuss results from [facility] ER Care Teams (unrecognized sec tion and content) Jira Administrator Relationship Specialty Start Date End Date Yoseph Scott MD [address] [phone] PCP - General 03/13/02 Jira Administrator Relationship Specialty Start Date End Date Yoseph Scott MD [address] [place] [address] PCP - General 03/13/02 (unrecognized sect ion and content) No Status Records FoundNo Status Records FoundNo Status Records FoundNo Status Records FoundNo Status Records Found INFORMATION SOURCE (unrecogn ized section and content) DATE CREATED AUTHOR 05/10/2022 [facility] DATE CREATED AUTHOR 'S ORGANIZ ATION 05/12/2022 [facility] DATE CREATED AUTHOR 'S ORGANIZ ATION 05/13/2022 [facility] DATE CREATED AUTHOR AUTHOR'S ORGANIZ ATION 06/22/2024 [facility] DATE CREATED AUTHOR AUTHOR'S ORGANIZ ATION 11/19/2024 [facility] FOR RECORDS PERTAINING TO PATIENTS WHO ARE OR HAVE BEEN ENROLLED IN A CHEMICAL DEPENDENCY/SUBSTANCEABUSE PROGRAM, SOME INFORMATION MAY BE OMITTED. This clinical summary was aggregated from multiple sources. Caution should be exercised in using it in the provision of clinical care. This summary normalizes information from multiple sources, and as a consequence, information in this document may materially change the coding, format and clinical context of patient data. In addition, data may be omitted in some cases. CLINICAL DECISIONS SHOULD BE BASED ON THE PRIMARY CLINICAL RECORDS. [facility] [employer] provides no warranty or guarantee of the accuracy or completeness of information in this document.
== END 2024-12-14 23:32 | disposition home or self-care (01) ==
PROVIDERS: Emergency Provider Emergency Medicine; Visit Provider Emergency Medicine
DX: L08.9 Local infection of the skin and subcutaneous tissue, unspecified (principal)
CPT/HCPCS: 99282